=== PATIENT | female | born 1950 | race Caucasian/White ===

== ENCOUNTER 2017-12-14 07:10 | Day surgery (SDC) | payer MEDICARE ==
[~2017-12-14] VITALS: Ht 152.4 cm; Wt 67.2 kg
[2017-12-14 07:58] VITALS: BP 163/83
[2017-12-14] MEDS ORDERED: MULT-6 PO (08:02)
[2017-12-14] MEDS ORDERED: LACTATED RINGERS 1,000 ML IV SCH (08:02)
[2017-12-14] MEDS ORDERED: LIDOCAINE-MPF 1%, 2ML ONE (08:04)
[2017-12-14] MEDS ORDERED: LIDOCAINE-MPF 1%, 2ML INFIL ONE (08:30)
[2017-12-14 08:32] LABS: BASOPHILS # (AUTO) 0.01 x10^3/uL (0-0.1); BASOPHILS % (AUTO) 0 % (0-1); EOSINOPHILS # (AUTO) 0.09 x10^3/uL (0-0.4); EOSINOPHILS % (AUTO) 1 % (1-7); LYMPHOCYTES # (AUTO) 0.91 x10^3/uL (1-3.4); LYMPHOCYTES % (AUTO) 13 % (22-44); MD NO; MEAN CORPUSCULAR HEMOGLOBIN 28.3 pg (27.0-34.8); MEAN CORPUSCULAR HGB CONC 33.3 g/dL (32.4-35.8); MEAN CORPUSCULAR VOLUME 84.9 fL (80-100); MEAN PLATELET VOLUME 8.6 fL (7.4-10.4); MONOCYTES # (AUTO) 0.33 x10^3/uL (0.2-0.8); MONOCYTES % (AUTO) 5 % (2-9); NEUTROPHILS # (AUTO) 5.45 x10^3/uL (1.8-6.8); NEUTROPHILS % (AUTO) 80 % (42-75); PLATELET COUNT 318 x10^3/uL (130-400); RED CELL DISTRIBUTION WIDTH 15.2 % (9.6-15.2)
[2017-12-14 08:45] LABS: ALANINE AMINOTRANSFERASE 19 U/L (12-78); ALBUMIN 3.3 g/dL (3.4-5.0); ANION GAP 7 mmol/L (5-15); CALCIUM 8.7 mg/dL (8.5-10.1); CHLORIDE 106 mmol/L (98-107); CREATININE 1.02 mg/dL (0.55-1.02)
[2017-12-14 08:47] LABS: ALKALINE PHOSPHATASE 93 U/L (45-117); BILIRUBIN,TOTAL 0.5 mg/dL (0.2-1.0); TOTAL PROTEIN 8.6 g/dL (6.4-8.2)
[2017-12-14] MEDS ORDERED: MIDAZOLAM 1 MG/ML, 2ML ONE (08:54)
[2017-12-14] MEDS ORDERED: FENTANYL PF 100 MCG/2ML ONE ×2 (08:54→08:55)
[2017-12-14] MEDS ORDERED: ESTROGENS CONJUGATED VAG CRM 0.625MG/1G, 30GM ONE (08:54)
[2017-12-14] MEDS ORDERED: PROPOFOL 10 MG/ML, 20ML ONE (09:02)
[2017-12-14] MEDS ORDERED: ONDANSETRON 2MG/ML, 2ML ONE (09:02)
[2017-12-14] MEDS ORDERED: SUCCINYLCHOLINE 20 MG/ML, 10ML ONE (09:02)
[2017-12-14] MEDS ORDERED: DEXAMETHASONE 4 MG/ML, 1ML ONE (09:02)
[2017-12-14 09:04] LABS: INTERNATIONAL NORMALIZED RATIO 0.94 (0.93-1.1); PROTHROMBIN TIME 9.8 Seconds (9.6-11.5)
[2017-12-14] MEDS ORDERED: FENTANYL PF 100 MCG/2ML IV PRN (09:30)
[2017-12-14] MEDS ORDERED: LABETALOL 5MG/ML, 20ML IV PRN (09:30)
[2017-12-14] MEDS ORDERED: hydrALAzine 20 MG/ML, 1ML IV PRN (09:30)
[2017-12-14] MEDS ORDERED: OXYcodone 5 MG/5 ML ORAL.SOL UDC PO PRN (09:30)
[2017-12-14] MEDS ORDERED: HYDROmorphone 1 MG/ML, 1ML IV PRN (09:30)
[2017-12-14] MEDS ORDERED: ONDANSETRON 2MG/ML, 2ML IV PRN (09:30)
[2017-12-14] MEDS ORDERED: OXYcodone 5 MG/5 ML ORAL.SOL UDC ONE (10:13)
== END 2017-12-14 14:45 | disposition home or self-care (01) ==
LOC: OUT 07:10
PROVIDERS: ATTEND Specialist
DX: C52 Malignant neoplasm of vagina (principal); Z90.710 Acquired absence of both cervix and uterus
CPT/HCPCS: 36415; 57100; 58999; 80053; 85025; 85610; 85730; 88305; 88342; 93005; J0330; J1100; J2250; J2405; J2704; J3010; J3490; J7120; G0461

== ENCOUNTER → 2019-11-11 | Outpatient (CLI) | payer MEDICARE, OTHER ==
[~2019-11-11] MED LIST: MULT-6 PO; Vitamin C PO; Vitamin D PO
[2019-11-11 10:18] LABS: BASOPHILS # (AUTO) 0.08 x10^3/uL (0-0.1); BASOPHILS % (AUTO) 1 % (0-1); EOSINOPHILS # (AUTO) 0.03 x10^3/uL (0-0.4); EOSINOPHILS % (AUTO) 0 % (1-7); LYMPHOCYTES # (AUTO) 0.97 x10^3/uL (1-3.4); LYMPHOCYTES % (AUTO) 8 % (22-44); MD NO; MEAN CORPUSCULAR HEMOGLOBIN 24.2 pg (27.0-34.8); MEAN CORPUSCULAR HGB CONC 31.5 g/dL (32.4-35.8); MEAN CORPUSCULAR VOLUME 76.6 fL (80-100); MONOCYTES # (AUTO) 0.31 x10^3/uL (0.2-0.8); MONOCYTES % (AUTO) 3 % (2-9); NEUTROPHILS # (AUTO) 10.09 x10^3/uL (1.8-6.8); NEUTROPHILS % (AUTO) 88 % (42-75); PLATELET COUNT 650 x10^3/uL (130-400); RED BLOOD COUNT 4.16 x10^6/uL (3.82-5.3); RED CELL DISTRIBUTION WIDTH 17.4 % (9.6-15.2)
[2019-11-11 10:24] LABS: INTERNATIONAL NORMALIZED RATIO 0.92 (0.93-1.1); PROTHROMBIN TIME 9.7 Seconds (9.6-11.5)
[2019-11-11 10:25] LABS: ALBUMIN 2.7 g/dL (3.4-5.0); ANION GAP 9 mmol/L (5-15); CALCIUM 9.2 mg/dL (8.5-10.1); CHLORIDE 97 mmol/L (98-107)
[2019-11-11 10:27] LABS: ALANINE AMINOTRANSFERASE 12 U/L (12-78); ALKALINE PHOSPHATASE 85 U/L (45-117); BILIRUBIN,TOTAL 0.4 mg/dL (0.2-1.0); CREATININE 1.03 mg/dL (0.55-1.02); TOTAL PROTEIN 8.4 g/dL (6.4-8.2)
== END | disposition home or self-care (01) ==
LOC: STAR 09:37
PROVIDERS: ATTEND Specialist
DX: Z01.818 Encounter for other preprocedural examination (principal); C53.8 Malignant neoplasm of overlapping sites of cervix uteri; R91.8 Other nonspecific abnormal finding of lung field; R00.0 Tachycardia, unspecified; R94.31 Abnormal electrocardiogram [ECG] [EKG]
CPT/HCPCS: 36415; 71046; 80053; 85025; 85610; 85730; 93005

== ENCOUNTER 2019-11-30 16:56 | Inpatient (IN) | payer OTHER ==
[~2019-11-30] VITALS: Ht 152.4 cm; Wt 44.7 kg
[~2019-11-30 16:56] MED LIST changes: +ONDA4TAB7 PO; +OXYC-302 PO
[2019-11-30] MEDS ORDERED: PLEASE ENTER HEIGHT AND WEIGHT MC SCH (18:30)
[2019-11-30] MEDS ORDERED: ONDANSETRON 2MG/ML, 2ML IVPush PRN (18:30)
[2019-11-30] MEDS ORDERED: MORPHINE SULFATE 4 MG/ML, 1ML IV PRN (18:30)
[2019-11-30 18:46] LABS: MEAN CORPUSCULAR HEMOGLOBIN 26.2 pg (27.0-34.8); MEAN CORPUSCULAR HGB CONC 32.6 g/dL (32.4-35.8); MEAN CORPUSCULAR VOLUME 80.6 fL (80-100); MEAN PLATELET VOLUME 7.5 fL (7.4-10.4); PLATELET COUNT 503 x10^3/uL (130-400); RED BLOOD COUNT 3.62 x10^6/uL (3.82-5.3); RED CELL DISTRIBUTION WIDTH 19.3 % (9.6-15.2)
[2019-11-30 18:57] LABS: ALANINE AMINOTRANSFERASE 28 U/L (12-78); ALBUMIN 1.7 g/dL (3.4-5.0); ANION GAP 7 mmol/L (5-15); CALCIUM 8.3 mg/dL (8.5-10.1); CHLORIDE 95 mmol/L (98-107)
[2019-11-30 18:59] LABS: ALKALINE PHOSPHATASE 147 U/L (45-117); BILIRUBIN,TOTAL 0.5 mg/dL (0.2-1.0); TOTAL PROTEIN 6.3 g/dL (6.4-8.2)
[2019-11-30 19:03] VITALS: BP 112/69
[2019-11-30 19:07] LABS: BASOPHILS # (AUTO) 0.11 x10^3/uL (0-0.1); BASOPHILS % (AUTO) 1 % (0-1); EOSINOPHILS # (AUTO) 0.07 x10^3/uL (0-0.4); EOSINOPHILS % (AUTO) 0 % (1-7); LYMPHOCYTES % (AUTO) 3 % (22-44); MD SCAN; MONOCYTES # (AUTO) 0.13 x10^3/uL (0.2-0.8); MONOCYTES % (AUTO) 1 % (2-9); NEUTROPHILS # (AUTO) 16.54 x10^3/uL (1.8-6.8); NEUTROPHILS % (AUTO) 95 % (42-75)
[2019-11-30] MEDS: NS + 20MEQ KCL 1,000 ML IV SCH (21:19)
[2019-11-30] MEDS: PIPERACILLIN/TAZO/PMX 3.375GM 50 ML IV SCH (21:19)
[2019-12-01 01:28] VITALS: BP 115/70
[2019-12-01] MEDS: PIPERACILLIN/TAZO/PMX 3.375GM 50 ML IV SCH ×4 (03:48→21:37)
[2019-12-01] MEDS: NS + 20MEQ KCL 1,000 ML IV SCH ×2 (05:50→14:32)
[2019-12-01 06:17] LABS: MEAN CORPUSCULAR HGB CONC 31.5 g/dL (32.4-35.8); MEAN CORPUSCULAR VOLUME 82.3 fL (80-100); MEAN PLATELET VOLUME 7.2 fL (7.4-10.4); PLATELET COUNT 507 x10^3/uL (130-400); RED BLOOD COUNT 3.72 x10^6/uL (3.82-5.3); RED CELL DISTRIBUTION WIDTH 19.8 % (9.6-15.2)
[2019-12-01 06:26] LABS: ANION GAP 4 mmol/L (5-15); CALCIUM 8.4 mg/dL (8.5-10.1); CHLORIDE 104 mmol/L (98-107); CREATININE 0.65 mg/dL (0.55-1.02)
[2019-12-01 06:41] LABS: BASOPHILS # (AUTO) 0.06 x10^3/uL (0-0.1); BASOPHILS % (AUTO) 0 % (0-1); EOSINOPHILS # (AUTO) 0.21 x10^3/uL (0-0.4); EOSINOPHILS % (AUTO) 2 % (1-7); LYMPHOCYTES # (AUTO) 0.59 x10^3/uL (1-3.4); LYMPHOCYTES % (AUTO) 5 % (22-44); MD SCAN; MONOCYTES # (AUTO) 0.22 x10^3/uL (0.2-0.8); MONOCYTES % (AUTO) 2 % (2-9); NEUTROPHILS # (AUTO) 12.09 x10^3/uL (1.8-6.8); NEUTROPHILS % (AUTO) 92 % (42-75)
[2019-12-01 08:33] VITALS: BP 122/70
[2019-12-01] MEDS ORDERED: ACETAMINOPHEN 325 MG TABLET PO PRN (09:00)
[2019-12-01 14:05] VITALS: BP 116/75
[2019-12-01 18:46] VITALS: BP 113/71
[2019-12-02 00:54] VITALS: BP 131/77
[2019-12-02] MEDS: PIPERACILLIN/TAZO/PMX 3.375GM 50 ML IV SCH ×4 (02:57→21:17)
[2019-12-02 04:42] LABS: BASOPHILS # (AUTO) 0.06 x10^3/uL (0-0.1); BASOPHILS % (AUTO) 0 % (0-1); EOSINOPHILS # (AUTO) 0.51 x10^3/uL (0-0.4); EOSINOPHILS % (AUTO) 4 % (1-7); LYMPHOCYTES # (AUTO) 0.69 x10^3/uL (1-3.4); LYMPHOCYTES % (AUTO) 5 % (22-44); MD NO; MEAN CORPUSCULAR HEMOGLOBIN 26.2 pg (27.0-34.8); MEAN CORPUSCULAR VOLUME 81.7 fL (80-100); MEAN PLATELET VOLUME 7.1 fL (7.4-10.4); MONOCYTES # (AUTO) 0.24 x10^3/uL (0.2-0.8); MONOCYTES % (AUTO) 2 % (2-9); NEUTROPHILS # (AUTO) 12.12 x10^3/uL (1.8-6.8); NEUTROPHILS % (AUTO) 89 % (42-75); PLATELET COUNT 548 x10^3/uL (130-400); RED BLOOD COUNT 3.65 x10^6/uL (3.82-5.3); RED CELL DISTRIBUTION WIDTH 19.3 % (9.6-15.2)
[2019-12-02] MEDS: NS + 20MEQ KCL 1,000 ML IV SCH ×2 (05:26→20:07)
[2019-12-02 06:35] VITALS: BP 134/82
[2019-12-02 12:30] VITALS: BP 128/76
[2019-12-02 18:50] VITALS: BP 150/76
[2019-12-02 20:55] LABS: MICROSCOPIC INDICATED
[2019-12-03 00:41] VITALS: BP 126/74
[2019-12-03] MEDS: PIPERACILLIN/TAZO/PMX 3.375GM 50 ML IV SCH ×4 (02:56→21:33)
[2019-12-03 05:28] LABS: MEAN CORPUSCULAR HEMOGLOBIN 25.8 pg (27.0-34.8); MEAN CORPUSCULAR HGB CONC 31.3 g/dL (32.4-35.8); MEAN CORPUSCULAR VOLUME 82.3 fL (80-100); MEAN PLATELET VOLUME 6.9 fL (7.4-10.4); PLATELET COUNT 616 x10^3/uL (130-400); RED BLOOD COUNT 3.95 x10^6/uL (3.82-5.3); RED CELL DISTRIBUTION WIDTH 19.9 % (9.6-15.2)
[2019-12-03 05:32] LABS: ANION GAP 5 mmol/L (5-15); CALCIUM 8.6 mg/dL (8.5-10.1); CHLORIDE 104 mmol/L (98-107); CREATININE 0.78 mg/dL (0.55-1.02)
[2019-12-03 06:23] LABS: BASOPHILS # (AUTO) 0.05 x10^3/uL (0-0.1); BASOPHILS % (AUTO) 1 % (0-1); EOSINOPHILS # (AUTO) 0.34 x10^3/uL (0-0.4); EOSINOPHILS % (AUTO) 3 % (1-7); LYMPHOCYTES # (AUTO) 0.72 x10^3/uL (1-3.4); LYMPHOCYTES % (AUTO) 6 % (22-44); MD SCAN; MONOCYTES # (AUTO) 0.29 x10^3/uL (0.2-0.8); MONOCYTES % (AUTO) 3 % (2-9); NEUTROPHILS # (AUTO) 10.14 x10^3/uL (1.8-6.8); NEUTROPHILS % (AUTO) 88 % (42-75)
[2019-12-03 06:36] VITALS: BP 134/76
[2019-12-03] MEDS: NS + 20MEQ KCL 1,000 ML IV SCH (11:18)
[2019-12-03 13:34] VITALS: BP 137/76
[2019-12-03 18:24] VITALS: BP 126/73
[2019-12-04] MEDS: NS + 20MEQ KCL 1,000 ML IV SCH ×2 (01:10→13:36)
[2019-12-04 01:29] VITALS: BP 124/74
[2019-12-04] MEDS: PIPERACILLIN/TAZO/PMX 3.375GM 50 ML IV SCH ×4 (03:16→23:24)
[2019-12-04 07:04] VITALS: BP 138/76
[2019-12-04 12:17] VITALS: BP 128/82
[2019-12-04 18:04] VITALS: BP 148/78
[2019-12-05 01:35] VITALS: BP 120/77
[2019-12-05] MEDS: NS + 20MEQ KCL 1,000 ML IV SCH ×2 (02:57→17:31)
[2019-12-05] MEDS: PIPERACILLIN/TAZO/PMX 3.375GM 50 ML IV SCH ×4 (04:43→23:26)
[2019-12-05 05:37] LABS: ANION GAP 6 mmol/L (5-15); CALCIUM 8.3 mg/dL (8.5-10.1); CHLORIDE 105 mmol/L (98-107); CREATININE 0.84 mg/dL (0.55-1.02)
[2019-12-05 05:43] LABS: BASOPHILS # (AUTO) 0.05 x10^3/uL (0-0.1); BASOPHILS % (AUTO) 0 % (0-1); EOSINOPHILS # (AUTO) 0.51 x10^3/uL (0-0.4); EOSINOPHILS % (AUTO) 4 % (1-7); LYMPHOCYTES # (AUTO) 1.02 x10^3/uL (1-3.4); LYMPHOCYTES % (AUTO) 7 % (22-44); MD NO; MEAN CORPUSCULAR HGB CONC 31.9 g/dL (32.4-35.8); MEAN CORPUSCULAR VOLUME 81.6 fL (80-100); MEAN PLATELET VOLUME 7.1 fL (7.4-10.4); MONOCYTES # (AUTO) 0.08 x10^3/uL (0.2-0.8); MONOCYTES % (AUTO) 1 % (2-9); NEUTROPHILS # (AUTO) 12.26 x10^3/uL (1.8-6.8); NEUTROPHILS % (AUTO) 88 % (42-75); PLATELET COUNT 590 x10^3/uL (130-400); RED BLOOD COUNT 4.07 x10^6/uL (3.82-5.3); RED CELL DISTRIBUTION WIDTH 20.3 % (9.6-15.2)
[2019-12-05 07:20] VITALS: BP 116/79
[2019-12-05 13:45] VITALS: BP 128/70
[2019-12-05 18:45] VITALS: BP 138/80
[2019-12-06 02:36] VITALS: BP 143/87
[2019-12-06] MEDS: PIPERACILLIN/TAZO/PMX 3.375GM 50 ML IV SCH ×2 (05:11→11:23)
[2019-12-06 08:01] VITALS: BP 134/80
[2019-12-06] MEDS: NS + 20MEQ KCL 1,000 ML IV SCH (08:31)
[2019-12-06 14:21] VITALS: BP 127/89
== END 2019-12-06 16:10 | disposition home health service (06) | DRG 920 ==
LOC: 3WST 17:39 → DCLOUNGE 12-06 15:58
PROVIDERS: ADMIT Obstetrics & Gynecology; ATTEND Obstetrics & Gynecology
DX: T81.31XA Disruption of external operation (surgical) wound, not elsewhere classified, initial encounter (principal); L03.90 Cellulitis, unspecified; C78.00 Secondary malignant neoplasm of unspecified lung; N13.30 Unspecified hydronephrosis; T81.30XA Disruption of wound, unspecified, initial encounter; C54.1 Malignant neoplasm of endometrium; D72.829 Elevated white blood cell count, unspecified; Z93.3 Colostomy status
CPT/HCPCS: 36415; 80048; 80053; 81001; 85025; 87070; 87077; 87086; 87186; 87205; G0378; J2543; J3480